=== PATIENT | female | born 1950 | race Caucasian/White ===

== ENCOUNTER → 2021-12-28 | Outpatient (CLI) | payer MEDICARE, OTHER ==
[2021-12-28 17:02] LABS: Partial Thromboplastin Time 22.5 sec (22.0-30.0); Prothrombin Time 10.9 sec (9.0-12.0)
[2021-12-28 23:55] LABS: Chol/HDL Ratio 3.12 Ratio; LDL Cholesterol,Calculated 121.5 mg/dL (0.0-131.0)
[2021-12-29 00:58] LABS: HCT 38.7 % (37.2-46.3); HGB 11.3 g/dL (12.0-15.0); MCH 27.4 pg (27.0-32.0); MCHC 29.2 g/dL (32.0-37.0); MCV 93.7 fL (80.0-97.0); Mean Platelet Volume 10.7 fL (9.5-12.2); NRBC Per 100 WBC 0 /100 WBCS (0.0-0.0); Platelet Count 304 X 10*3/uL (140-440); RBC 4.13 X 10*6/uL (4.10-5.20); RDW 14.3 % (11.5-14.5); WBC 8.07 X 10*3/uL (4.50-10.00)
[2021-12-29 02:42] LABS: % Iron Saturation 16.92 (12.00-45.00); ALT 12 U/L (8-44); AST 17 U/L (13-35); African American GFR (CKD) 65.3 (60.0-200.0); Albumin 4.3 g/dL (3.8-4.9); Albumin/Globulin Ratio 1.84 (1.60-3.17); Alkaline Phosphatase 111 U/L (41-126); BUN/Creat Ratio 19.41 Ratio (12.00-20.00); Blood Urea Nitrogen 19.6 mg/dL (9.0-27.0); Calcium 9.9 mg/dL (8.7-10.3); Carbon Dioxide 24.1 mmol/L (20.0-27.5); Chloride 103 mmol/L (96-109); Globulin 2.3 g/dL (1.6-3.3); Glucose 83 mg/dL (70-110); Iron 71 ug/dL (50-170); Magnesium 2.3 mg/dL (1.5-2.4); Non-African American GFR(CKD) 56.4 (60.0-200.0); Phosphorus 3.7 mg/dL (2.4-5.1); Potassium 4.3 mmol/L (3.5-5.5); Prealbumin 26.8 mg/dL (18.0-42.0); Sodium 141 mmol/L (135-145); Total Iron Binding Capacity 421 ug/dL (228-460); Total Protein 6.6 g/dL (6.2-8.2)
[2021-12-29 12:58] LABS: Zinc, Serum 51 ug/dL (60-130)
[2021-12-30 08:32] LABS: Vitamin A 73 ug/dL (38-106)
== END | disposition home or self-care (01) ==
LOC: LABWHC1 15:19
PROVIDERS: ATTEND Surgery Plastic and Reconstructive Surgery
DX: E66.01 Morbid (severe) obesity due to excess calories (principal)
CPT/HCPCS: 36415; 80053; 80061; 82306; 82525; 82607; 82746; 83036; 83540; 83550; 83735; 83970; 84100; 84134; 84255; 84425; 84443; 84590; 84630; 85027; 85610; 85730

== ENCOUNTER → 2022-02-27 | Outpatient (CLI) | payer MEDICARE | END | disposition home or self-care (01) | LOC: LABWHC1 13:57 | PROVIDERS: ATTEND Orthopaedic Surgery | DX: T84.84XA Pain due to internal orthopedic prosthetic devices, implants and grafts, initial encounter (principal); M25.562 Pain in left knee; M25.561 Pain in right knee; Z96.651 Presence of right artificial knee joint | CPT/HCPCS: 36415; 85379; 85652; 86140 ==

== ENCOUNTER → 2022-03-01 | Outpatient (CLI) | payer MEDICARE, OTHER ==
[2022-03-01 14:40] VITALS: BP 146/77; PULSE 79; TEMP 98.2; BMI 38.7
--- NOTE | 2022-03-01 18:32 | P.HPBAR ---
Bariatric H&P - History & Physicial H&P Date: 03/01/22 History & Physicial: Visit/CC: bypass f/u Patient initial contact: Initial weight: Initial weight in pounds: Height: 5 ft 4 in Initial BMI: Last weight: Current weight: 102.512 kg Current weight in pounds: 226.00 Current BMI: 38.7 [place] body weight (based on NIH guidelines): 54.431 kg Excess body weight loss: The patient is a 71 year-old F who presents for Bariatric Assessment. She comes in pucking from meat and can tolerate junk food. She had surgery [address] Guan for gastric bypass. Recommend upper endoscopy. Lab reviewed. Correct zinc. Esophagram. Highest weight 390 pounds and lowest weight 215 pounds. 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 History of Any Multi-Drug Resistant Organisms: None Reported Past Surgical History: Bariatric Surgery, Cholecystectomy, Tonsillectomy Additional Past Surgical History / Comment(s): gastric bypass surgery 2000, tummy tuck, panniculectomy, rectocele and cystocele repair Past Anesthesia/Blood Transfusion Reactions: No Reported Reaction Past Psychological History: No Psychological Hx Reported Smoking Status: Former smoker Past Alcohol Use History: Rare Past Drug Use History: Marijuana Additional Drug Use History / Comment(s): takes cbd gummies for pain Surgical - Exam Vital Signs Temp Pulse BP 98.2 F 79 146/77 03/01/22 14:34 03/01/22 14:34 03/01/22 14:34 Bariatric Checklist Checklist: Plan: Checklist: EGD: 1. Hiatal hernia: 2. H. Pylori: HgbA1c: Vitamin D: Smoking: Primary care physician referral: Dr. Davis Psychiatry clearance: Cardiology clearance: Sleep study: Diet journal: VTE risk score: VTE risk level: Rehab needs at discharge:
== END | disposition home or self-care (01) ==
LOC: BARWHC3 13:41
PROVIDERS: ATTEND Surgery Plastic and Reconstructive Surgery
DX: Z48.815 Encounter for surgical aftercare following surgery on the digestive system (principal)
CPT/HCPCS: 99211

== ENCOUNTER → 2022-03-17 | Outpatient (CLI) | payer MEDICARE, OTHER ==
--- NOTE | 2022-03-17 11:55 | FL ---
EXAMINATION TYPE: FL barium swallow DATE OF EXAM: 03/17/2022 COMPARISON: None HISTORY: History of Marilia-en-Y, gastroesophageal reflux TECHNIQUE: Single contrast technique with thin barium was utilized for evaluation of the esophagus. FINDINGS: Esophagus dilates to normal caliber and has normal contour of the gastroesophageal junction . Gastroesophageal junction opens to normal caliber. There is complete stripping of the esophageal louise xuan in the horizontal drinking position. Note is made of multiple tertiary contractions during the ex amination compatible with presbyesophagus. Small amount of reflux was evident during the exam. IMPRESSION: 1. Gastroesophageal reflux in the distal third of the esophagus. 2. Presbyesophagus.
== END | disposition home or self-care (01) ==
LOC: RADUSWWP 09:38
PROVIDERS: ATTEND Surgery Plastic and Reconstructive Surgery
DX: R13.10 Dysphagia, unspecified (principal)
CPT/HCPCS: 74220

== ENCOUNTER 2022-03-27 08:18 | Day surgery (SDC) | payer MEDICARE, OTHER ==
[2022-03-23 15:56] VITALS: BMI 37.2
--- NOTE | 2022-03-27 07:40 | P.GSHP ---
History of Present Illness H&P Date: 03/27/22 CHIEF COMPLAINT: GERD HISTORY OF PRESENT ILLNESS: The patient is a 71-year-old female who presents reports gastroesophageal reflux disease. Upper endoscopy was offered for further evaluation and management. PAST MEDICAL HISTORY: Please see list. PAST SURGICAL HISTORY: Please see list. MEDICATIONS: Please see list. ALLERGIES: Please see list. SOCIAL HISTORY: No illicit drug use FAMILY HISTORY: No reports of Crohn disease or ulcerative colitis. REVIEW OF ORGAN SYSTEMS: CONSTITUTIONAL: No reports of fevers or chills. GI: Denies any blood in stools or constipation. PHYSICAL EXAM: VITAL SIGNS: Stable GENERAL: Well-developed and pleasant in no acute distress. HEENT: No scleral icterus. Extraocular movements grossly intact. Moist buccal mucosa. NECK: Supple without lymphadenopathy. CHEST: Unlabored respirations. Equal bilateral excursions. CARDIOVASCULAR: Regular rate and rhythm. Distal 2+ pulses. ABDOMEN: Soft, nondistended. MUSCULOSKELETAL: No clubbing, cyanosis, or edema. ASSESSMENT: 1. Gastroesophageal reflux disease PLAN: 1. 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, hx ulcer, hx diabetes-prior to wt loss, does not monitor diet, anemia, History of Any Multi-Drug Resistant Organisms: None Reported Past Surgical History: Bariatric Surgery, Cholecystectomy, Tonsillectomy Additional Past Surgical History / Comment(s): gastric bypass surgery 2000, tummy tuck, panniculectomy, rectocele and cystocele repair, karla cataracts Past Anesthesia/Blood Transfusion Reactions: No Reported Reaction Smoking Status: Former smoker - Past Family History Father Family Medical History: Cancer Brother(s) Family Medical History: Cancer Medications and Allergies Home Medications Medication Instructions Recorded Confirmed Type Losartan [Cozaar] 50 mg PO DAILY 03/01/22 03/23/22 History Triamterene/Hydrochlorothiazid 1 each PO DAILY 03/01/22 03/23/22 History [Triamterene-Hctz 37.5-25 mg Tb] Aspirin [Adult Low Dose Aspirin EC] 81 mg PO DAILY 03/23/22 03/23/22 History Cholecalciferol (Vitamin D3) 125 mcg PO Q2D 03/23/22 03/23/22 History [Vitamin D3 (125 MCG = 5,000 IU)] DULoxetine HCL [Cymbalta] 30 mg PO DAILY 03/23/22 03/23/22 History Allergies Allergy/AdvReac Type Severity Reaction Status Date / Time amoxicillin [From Augmentin] Allergy Severe throat Verified 03/23/22 15:44 closed clavulanic acid Allergy Severe throat Verified 03/23/22 15:44 [From Augmentin] closed NSAIDS (Non-Steroidal Allergy Severe Anaphylaxis Verified 03/23/22 15:44 Anti-Inflamma Tetanus Vaccines and Toxoid Allergy Severe Swelling Verified 03/23/22 15:44 codeine Allergy Nausea & Verified 03/23/22 15:44 Vomiting ibuprofen Allergy "thoat Verified 03/23/22 15:44 closed" Iodinated Contrast Media Allergy Rash/Hives/itching/ Verified 03/23/22 15:44 turned red Penicillins Allergy Rash/Hives Verified 03/23/22 15:44
[2022-03-27] MEDS ORDERED: LACTATED RINGERS 1,000 ML IV SCH (08:56)
[2022-03-27 09:00] VITALS: RESP 16; TEMP 96.9
[2022-03-27] MEDS ORDERED: PROPOFOL 10 MG/ML 20 ML VIAL IV ONE (09:47)
[2022-03-27] MEDS ORDERED: LIDOCAINE 2% INJ 20 MG/ML (2 ML VIAL) ONE (09:47)
[2022-03-27] MEDS ORDERED: MIDAZOLAM 2 MG/2 ML VIAL ONE (09:47)
--- NOTE | 2022-03-27 10:25 | P.PCN ---
Date of Procedure: 03/27/22 Description of Procedure: PREOPERATIVE DIAGNOSIS: Dysphagia. Gastroesophageal reflux disease Esophageal stricture Esophageal dysmotility POSTOPERATIVE DIAGNOSIS: Dysphagia. Gastroesophageal reflux disease Gastrojejunal ulcer with stenosis Esophageal dysmotility Jejunal ulcers Diaphragmatic hiatal hernia Presbyesophagus OPERATION: Esophagogastrojejunoscopy with rigid dilator over the guidewire 54 Fr with dilation of esophageal. Esophagogastrojejunoscopy with 20 mm balloon dilation, gastric stenosis Esophagogastrojejunoscopy with cold forceps biopsies of jejunum SURGEON: Marie Solitario MD ANESTHESIA: MAC. INDICATIONS: The patient is a 71-year-old female who presents with a history of dysphagia. Benefits and risks of the procedure were described. Informed consent was obtained. DESCRIPTION: The patient was brought into the endoscopy suite and laid in the left lateral decubitus position. After a timeout was confirmed, the procedure was initiated. An Olympus gastroscope was passed into the posterior oropharynx down to the distal esophagus were 2 cm hiatal hernia recurrence was identified. The scope was entered into the gastric pouch with gastrojejunal stricture identified, mild. Mild stenosis along the gastrojejunal anastomosis. To address her esophageal dysmotility, rigid dilator over guidewire was selected. Also, balloon dilation 20 mm performed to address gastrojejunal anastomotic stricture. Next using an Mexican rigid dilator, a guidewire was placed through the ga stroscope. Next the scope was withdrawn. A 54-Fijian rigid Mexican dilator was passed carefully along the posterior oropharynx to 50 cm and left in place for 2-3 minutes stretch. The dilator was withdrawn including the guidewire. The scope was reentered along the posterior oropharynx with no findings of full- thickness tear of the upper esophageal sphincter. Biopsies of jejunal ulcerations were identified and obtained using cold forceps. No full-thickness injury was encountered. The GI tract was desufflated. The patient tolerated the procedure well. FINDINGS: Gastrojejunal anastomotic stricture stenosis dilated Jejunal ulcerations biopsied Distal esophageal stricture with esophageal dysmotility dilated Mexican rigid dilator 54-Fijian completed. 2cm hiatal hernia RECOMMENDATIONS: Upper endoscopy as needed Start omeprazole 40 mg daily Plan - Discharge Summary New Discharge Prescriptions: New Pantoprazole [Protonix] 40 mg PO DAILY #14 tab Continue Losartan [Cozaar] 50 mg PO DAILY Triamterene/Hydrochlorothiazid [Triamterene-Hctz 37.5-25 mg Tb] 1 each PO DAILY DULoxetine HCL [Cymbalta] 30 mg PO DAILY Cholecalciferol (Vitamin D3) [Vitamin D3 (125 MCG = 5,000 IU)] 125 mcg PO Q2D Aspirin [Adult Low Dose Aspirin EC] 81 mg PO DAILY Discharge Medication List Losartan [Cozaar] 50 mg PO DAILY 03/01/22 [History] Triamterene/Hydrochlorothiazid [Triamterene-Hctz 37.5-25 mg Tb] 1 each PO DAILY 03/01/22 [History] Aspirin [Adult Low Dose Aspirin EC] 81 mg PO DAILY 03/23/22 [History] Cholecalciferol (Vitamin D3) [Vitamin D3 (125 MCG = 5,000 IU)] 125 mcg PO Q2D 03/23/22 [History] DULoxetine HCL [Cymbalta] 30 mg PO DAILY 03/23/22 [History] Pantoprazole [Protonix] 40 mg PO DAILY #14 tab 03/27/22 [Rx] [place] [facility]Ref[place] [facility] [place] [place] Patient Instructions/Handouts: Chronic Dysphagia (GEN), Level 2 National Dysphagia Diet (DC) Activity/Diet/Wound Care/Special Instructions: Recommend liquid diet, ground or pured diet Discharge Disposition: HOME SELF-CARE
[2022-03-27 10:32] VITALS: BP 144/85; PULSE 64
== END 2022-03-27 10:46 | disposition home or self-care (01) ==
LOC: ORWHC2ENDO 08:18
PROVIDERS: ATTEND Surgery Plastic and Reconstructive Surgery
DX: K22.2 Esophageal obstruction (principal); K22.4 Dyskinesia of esophagus; K22.89 Other specified disease of esophagus; K28.9 Gastrojejunal ulcer, unspecified as acute or chronic, without hemorrhage or perforation; K21.9 Gastro-esophageal reflux disease without esophagitis; K52.9 Noninfective gastroenteritis and colitis, unspecified; K44.9 Diaphragmatic hernia without obstruction or gangrene; I10 Essential (primary) hypertension; E11.36 Type 2 diabetes mellitus with diabetic cataract; Z79.82 Long term (current) use of aspirin; Z87.891 Personal history of nicotine dependence; Z88.0 Allergy status to penicillin; Z88.6 Allergy status to analgesic agent; Z88.7 Allergy status to serum and vaccine; Z90.49 Acquired absence of other specified parts of digestive tract; Z98.84 Bariatric surgery status; Z88.1 Allergy status to other antibiotic agents
CPT/HCPCS: 43249; 43245; 43239; 88305; J2250; J2704; J2001; C1726

== ENCOUNTER → 2022-05-03 | Outpatient (CLI) | payer MEDICARE, OTHER ==
[2022-05-03 14:03] VITALS: BP 140/81; PULSE 90; TEMP 98.3; BMI 37.0
--- NOTE | 2022-05-03 14:54 | P.BASOAP ---
Subjective Progress Note Date: 05/03/22 Not taking MVI. Needs new labs. Stop omeprazole due to diarrhea. Modifications of eating for dysphagia. Objective - Vital Signs Vital signs: Vital Signs Temp 98.3 F 05/03/22 13:59 Pulse 90 05/03/22 13:59 Resp BP 140/81 05/03/22 13:59 Pulse Ox FiO2 Intake & Output 05/02/22 05/03/22 05/03/22 18:59 06:59 18:59 Weight 97.976 kg Assessment/Plan Plan: Date: 05/03/22 Initial Weight: Initial BMI: Current Weight: 97.976 kg Current BMI: 37.0 Type of Surgery: Total Volume in Band: Previous Volume: Volume Removed: Volume Added: Band Size:
[2022-05-03 16:06] LABS: Prothrombin Time 10.7 sec (9.0-12.0)
[2022-05-03 23:46] LABS: % Iron Saturation 12.66 (12.00-45.00); ALT 13 U/L (8-44); AST 16 U/L (13-35); African American GFR (CKD) 55.8 (60.0-200.0); Albumin 4.2 g/dL (3.8-4.9); Alkaline Phosphatase 110 U/L (41-126); BUN/Creat Ratio 18.35 Ratio (12.00-20.00); Blood Urea Nitrogen 21.1 mg/dL (9.0-27.0); Calcium 9.8 mg/dL (8.7-10.3); Chloride 104 mmol/L (96-109); Ferritin 15.1 ng/mL (10.0-291.0); Globulin 2.6 g/dL (1.6-3.3); Glucose 98 mg/dL (70-110); Iron 52 ug/dL (50-170); Magnesium 2.2 mg/dL (1.5-2.4); Non-African American GFR(CKD) 48.2 (60.0-200.0); Phosphorus 3.7 mg/dL (2.4-5.1); Potassium 4.3 mmol/L (3.5-5.5); Sodium 142 mmol/L (135-145); Total Iron Binding Capacity 412 ug/dL (228-460); Total Protein 6.8 g/dL (6.2-8.2)
[2022-05-04 00:55] LABS: Chol/HDL Ratio 3.82 Ratio; LDL Cholesterol,Calculated 153.3 mg/dL (0.0-131.0); Prealbumin 21.8 mg/dL (18.0-42.0)
[2022-05-04 01:37] LABS: HGB 11.9 g/dL (12.0-15.0); MCH 27.9 pg (27.0-32.0); MCHC 30.5 g/dL (32.0-37.0); MCV 91.5 fL (80.0-97.0); Mean Platelet Volume 11.9 fL (9.5-12.2); NRBC Per 100 WBC 0 /100 WBCS (0.0-0.0); Platelet Count 265 X 10*3/uL (140-440); RBC 4.26 X 10*6/uL (4.10-5.20); RDW 14.1 % (11.5-14.5)
[2022-05-04 15:33] LABS: Zinc, Serum 79 ug/dL (60-130)
[2022-05-05 06:27] LABS: Vit B1(Thiamine) 66 ug/L (38-122)
[2022-05-05 06:54] LABS: Vitamin A 61 ug/dL (38-106)
== END | disposition home or self-care (01) ==
LOC: BARWHC3 13:28
PROVIDERS: ATTEND Surgery Plastic and Reconstructive Surgery
DX: E66.01 Morbid (severe) obesity due to excess calories (principal); D50.8 Other iron deficiency anemias; D50.9 Iron deficiency anemia, unspecified; K91.2 Postsurgical malabsorption, not elsewhere classified; E44.0 Moderate protein-calorie malnutrition; E44.1 Mild protein-calorie malnutrition; N19 Unspecified kidney failure; T56.894A Toxic effect of other metals, undetermined, initial encounter
CPT/HCPCS: 84255; 84134; 84425; 80061; 80053; 82607; 82728; 82525; 82746; 83540; 83550; 83735; 84100; 84443; 84590; 84630; 85027; 85610; 85730; 82306; 83970; 83036; G0463; 99211